=== PATIENT | female | born 1990 | race Two or more races ===

== ENCOUNTER 2022-11-23 11:00 | Emergency (ER) | payer MEDICAID, OTHER ==
[~2022-11-23] VITALS: Ht 162.6 cm; Wt 46.4 kg
[2022-11-23 11:19] VITALS: BP 107/71
[2022-11-23] MEDS ORDERED: KETOROLAC TROMETH 60MG/2ML VIAL IM ONE (11:30)
[2022-11-23] MEDS ORDERED: HYDR-4902 PO (12:38)
[2022-11-23] MEDS ORDERED: IBUP800T26 PO (12:38)
== END 2022-11-23 12:45 | disposition home or self-care (01) ==
LOC: ER 11:00
DX: S39.012A Strain of muscle, fascia and tendon of lower back, initial encounter (principal); S80.01XA Contusion of right knee, initial encounter; Z88.6 Allergy status to analgesic agent; V43.52XA Car driver injured in collision with other type car in traffic accident, initial encounter; Y93.89 Activity, other specified; Y92.89 Other specified places as the place of occurrence of the external cause; Y99.8 Other external cause status
CPT/HCPCS: 72100; 73560; 96372; 99284; J1885